=== PATIENT | female | born 1990 | race Caucasian/White ===

== ENCOUNTER 2016-04-28 14:25 | Emergency (ER) | payer MEDICAID ==
[2016-04-28 15:30] VITALS: BP 112/91
--- NOTE | 2016-04-28 16:08 | ER Document Report ---
ED Medical Screen (RME) - General Stated Complaint: LEG PAIN Mode of Arrival: Ambulatory Information source: Patient Notes: She presents to the emergency department with complaints of left lower leg pain that started hurting this morning denies trauma. Denies history of DVT. Patient does take control does not smoke. Denies other symptoms such as fever vomiting diarrhea. No obvious signs of DVT. TRAVEL OUTSIDE OF THE [place] IN LAST 30 DAYS: No - Related Data Allergies/Adverse Reactions: codeine [Codeine] Allergy (Intermediate, Verified 12/04/14 21:03) swelling Adhesive Bandage * [Adhesive Bandage] Adverse Reaction (Verified 12/04/14 21:03) Past Medical History - Past Medical History Cardiac Medical History: Denies: Hx Coronary Artery Disease, Hx DVT, Hx Hypercholesterolemia, Hx Hypertension Pulmonary Medical History: Reports: Hx Bronchitis Neurological Medical History: Reports: Hx Migraine. Denies: Hx Seizures Endocrine Medical History: Reports: Hx Diabetes Mellitus Type 2 - gestational Renal/ Medical History: Reports: Hx Kidney Stones, Hx Ovarian Cysts GI Medical History: Reports: Hx Irritable Bowel Psychiatric Medical History: Reports: Hx Depression Past Surgical History: Reports: Hx Cholecystectomy - Immunizations Immunizations up to date: Yes Hx Diphtheria, Pertussis, Tetanus Vaccination: Yes Physical Exam - Vital signs Vitals: Temp Pulse Resp BP Pulse Ox 98.0 F 102 H 16 112/91 H 100 04/28/16 15:29 04/28/16 15:29 04/28/16 15:29 04/28/16 15:29 04/28/16 15:29 Course - Vital Signs Vital signs: Temp Pulse Resp BP Pulse Ox 98.0 F 102 H 16 112/91 H 100 04/28/16 15:29 04/28/16 15:29 04/28/16 15:29 04/28/16 15:29 04/28/16 15:29
--- NOTE | 2016-04-28 16:48 | ER Document Report ---
ED General - General Chief Complaint: Leg Pain Stated Complaint: LEG PAIN Mode of Arrival: Ambulatory Information source: Patient Notes: Patient presents to the emergency department with complaints of left lower leg pain that started this morning. Patient denies trauma. Patient denies history of DVT/PE. Patient denies recent long trip. Patient reports she just woke up in her lower leg is hurting. She reports she was sandals all the time and did nothing but laid around yesterday.. TRAVEL OUTSIDE OF THE [place] IN LAST 30 DAYS: No - HPI Onset: This morning Onset/Duration: Sudden Quality of pain: Achy Pain Level: 4 Associated symptoms: None Exacerbated by: Walking Relieved by: Denies Similar symptoms previously: No Recently seen / treated by doctor: No - Related Data Allergies/Adverse Reactions: codeine [Codeine] Allergy (Intermediate, Verified 12/04/14 21:03) swelling Adhesive Bandage * [Adhesive Bandage] Adverse Reaction (Verified 12/04/14 21:03) Past Medical History - General Information source: Patient Last Menstrual Period: NuvaRing , PCOS - Social History Smoking Status: Never Smoker Cigarette use (# per day): No Frequency of alcohol use: None Drug Abuse: None Lives with: Family Family History: CVA, DM, Hyperlipidemia, Hypertension, Malignancy, Thyroid Disfunction Patient has suicidal ideation: No Patient has homicidal ideation: No - Past Medical History Cardiac Medical History: Denies: Hx Coronary Artery Disease, Hx DVT, Hx Hypercholesterolemia, Hx Hypertension Pulmonary Medical History: Reports: Hx Bronchitis Neurological Medical History: Reports: Hx Migraine. Denies: Hx Seizures Endocrine Medical History: Reports: Hx Diabetes Mellitus Type 2 - gestational Renal/ Medical History: Reports: Hx Kidney Stones, Hx Ovarian Cysts. Denies: Hx Peritoneal Dialysis GI Medical History: Reports: Hx Irritable Bowel Psychiatric Medical History: Reports: Hx Depression Past Surgical History: Reports: Hx Cholecystectomy - Immunizations Immunizations up to date: Yes Hx Diphtheria, Pertussis, Tetanus Vaccination: Yes Review of Systems - Review of Systems Notes: Review HPI for review of systems., All other systems negative Physical Exam - Vital signs Vitals: Temp Pulse Resp BP Pulse Ox 98.0 F 102 H 16 112/91 H 100 04/28/16 15:29 04/28/16 15:29 04/28/16 15:29 04/28/16 15:29 04/28/16 15:29 - Notes Notes: PHYSICAL EXAMINATION: GENERAL: Well-appearing and in no acute distress NONTOXIC LOOKING HEAD: Atraumatic, normocephalic. EYES: Pupils equal round , extraocular movements intact, sclera anicteric, conjunctiva are normal. ENT: nares patent, Moist mucous membranes. NECK: Normal range of motion, supple without lymphadenopathy LUNGS: CTAB and equal. No wheezes rales or rhonchi. HEART: Regular rate and rhythm EXTREMITIES: Normal range of motion, no pitting edema. No cyanosis. No sign of DVT no erythema no swelling or warmth. GOOD Pedal pulse NEUROLOGICAL: Cranial nerves grossly intact. Normal sensory/motor PSYCH: Normal mood, normal affect. SKIN: Warm, Dry, normal turgor, no rashes or lesions noted - Extremities General lower extremity: Normal inspection, Tender, Normal color, Normal ROM, Normal strength, Normal temperature, Normal weight bearing. No: Edema, Joao's sign Course - Re-evaluation Re-evalutation: 04/28/16 Patient looks good leg shows no sign of DVT or injury or trauma. Doppler neg. Patient was instructed on importance of follow-up with Dr. Woody - Vital Signs Vital signs: Temp Pulse Resp BP Pulse Ox 98.0 F 102 H 16 112/91 H 100 04/28/16 15:29 04/28/16 15:29 04/28/16 15:29 04/28/16 15:29 04/28/16 15:29 - Diagnostic Test Radiology reviewed: Image reviewed, Reports reviewed - NEG DOPPLER Discharge - Discharge Clinical Impression: Left leg pain Condition: Stable Disposition: HOME, SELF-CARE Instructions: Use of [id number] Ibuprofen ([facility]) Additional Instructions: *You have been evaluated for left leg pain *Rest/Ice/Elevate *Follow up with your primary care provider for recheck within one week *Take ibuprofen as indicated for pain *Return to ED for worsening condition, changes, needs Referrals: STORMY WOODY MD [Primary Care Provider] - Follow up in 3-5 days
== END 2016-04-28 19:01 | disposition home or self-care (01) ==
LOC: ER 14:25
DX: M79.662 Pain in left lower leg (principal); Z87.442 Personal history of urinary calculi; Z90.49 Acquired absence of other specified parts of digestive tract; Z88.6 Allergy status to analgesic agent
CPT/HCPCS: 93971; 99283

== ENCOUNTER 2016-05-04 23:12 | Emergency (ER) | payer MEDICAID ==
[2016-05-05] MEDS ORDERED: METOCLOPRAMIDE HCL ORAL SOLN 10 MG/10 ML UDCUP PO ONE (01:08)
[2016-05-05] MEDS ORDERED: FAMOTIDINE 20 MG TABLET PO ONE (01:08)
[2016-05-05] MEDS ORDERED: MAG HYDROX/AL HYDROX/SIMETH SUSP 30 ML UDCUP PO ONE (01:08)
[2016-05-05] MEDS ORDERED: LIDOCAINE 2% VISCOUS SOLN 20 ML UDCUP PO ONE (01:08)
[2016-05-05 01:54] LABS: HEMATOCRIT 40.9 % (36.0-47.0); HGB HCT DIFFERENCE -1.9; MEAN CORPUSCULAR HEMOGLOBIN 25.9 pg (27.0-33.4); MEAN CORPUSCULAR HGB CONC 31.9 g/dL (32.0-36.0); MEAN CORPUSCULAR VOLUME 81 fl (80-97); RED BLOOD COUNT 5.03 10^6/uL (3.72-5.28); RED CELL DISTRIBUTION WIDTH 13.5 % (11.5-14.0); WHITE BLOOD COUNT 12.8 10^3/uL (4.0-10.5)
[2016-05-05 02:09] LABS: ALANINE AMINOTRANSFERASE 26 U/L (9-52); ALBUMIN 4.2 g/dL (3.5-5.0); ALKALINE PHOSPHATASE 100 U/L (38-126); ANION GAP 11 (5-19); ASPARTATE AMINO TRANSFERASE 17 U/L (14-36); BILIRUBIN,TOTAL 0.5 mg/dL (0.2-1.3); BLOOD UREA NITROGEN 14 mg/dL (7-20); CALCIUM 9.5 mg/dL (8.4-10.2); CARBON DIOXIDE 29 mmol/L (22-30); CHLORIDE 100 mmol/L (98-107); CREATININE RESULT 0.92 mg/dL (0.52-1.25); GLUCOSE 106 mg/dL (75-110); POTASSIUM 3.7 mmol/L (3.6-5.0); SODIUM 139.7 mmol/L (137-145); TOTAL PROTEIN 7.6 g/dL (6.3-8.2)
--- NOTE | 2016-05-05 02:18 | ER Document Report ---
ED General - General Chief Complaint: Vomiting Stated Complaint: VOMITING Notes: Patient is a 25-year-old female without past medical history, no use of anticoagulation who presents with concerns of vomiting bright red blood. States she's had 3-4 episodes of vomiting throughout the day today most recently one hour prior to arrival. She is unable to quantify the amount of blood that she has vomited. No prior history of similar symptoms in the past. Nothing improves or worsens or symptoms. No evidence of contacts. She has not spoken to her primary care physician regarding today's concerns. She denies any lightheadedness, weakness, or syncope. No melena or hematochezia. Does note a dull, cramping, mild epigastric abdominal pain. TRAVEL OUTSIDE OF THE [place] IN LAST 30 DAYS: No - Related Data Allergies/Adverse Reactions: codeine [Codeine] Allergy (Intermediate, Verified 12/04/14 21:03) swelling Adhesive Bandage * [Adhesive Bandage] Adverse Reaction (Verified 12/04/14 21:03) Past Medical History - General Information source: Patient - Social History Smoking Status: Never Smoker Frequency of alcohol use: None Drug Abuse: None Lives with: Spouse/Significant other Family History: CVA, DM, Hyperlipidemia, Hypertension, Malignancy, Thyroid Disfunction - Past Medical History Cardiac Medical History: Denies: Hx Coronary Artery Disease, Hx DVT, Hx Hypercholesterolemia, Hx Hypertension Pulmonary Medical History: Reports: Hx Bronchitis Neurological Medical History: Reports: Hx Migraine. Denies: Hx Seizures Endocrine Medical History: Reports: Hx Diabetes Mellitus Type 2 - gestational Renal/ Medical History: Reports: Hx Kidney Stones, Hx Ovarian Cysts. Denies: Hx Peritoneal Dialysis GI Medical History: Reports: Hx Irritable Bowel Psychiatric Medical History: Reports: Hx Depression Past Surgical History: Reports: Hx Cholecystectomy - Immunizations Immunizations up to date: Yes Hx Diphtheria, Pertussis, Tetanus Vaccination: Yes Review of Systems - Review of Systems Notes: Constitutional: Negative for fever. HENT: Negative for sore throat. Eyes: Negative for visual changes. Cardiovascular: Negative for chest pain. Respiratory: Negative for shortness of breath. Gastrointestinal: Negative for abdominal pain, positive for vomiting Genitourinary: Negative for dysuria. Musculoskeletal: Negative for back pain. Skin: Negative for rash. Neurological: Negative for headaches, weakness or numbness. 10 point ROS negative except as marked above and in HPI. Physical Exam - Vital signs Vitals: Temp Pulse Resp BP Pulse Ox 98.1 F 105 H 16 109/75 97 05/04/16 23:38 05/04/16 23:38 05/04/16 23:38 05/04/16 23:38 05/04/16 23:38 Interpretation: Tachycardic Notes: PHYSICAL EXAMINATION: GENERAL: Well-appearing, well-nourished and in no acute distress. HEAD: Atraumatic, normocephalic. EYES: Pupils equal round and reactive to light, extraocular movements intact, sclera anicteric, conjunctiva are normal. ENT: nares patent, oropharynx clear without exudates. Moist mucous membranes. NECK: Normal range of motion, supple without lymphadenopathy LUNGS: Breath sounds clear to auscultation bilaterally and equal. No wheezes rales or rhonchi. HEART: Regular rate and rhythm without murmurs ABDOMEN: Soft, nontender, normoactive bowel sounds. No guarding, no rebound. No masses appreciated. EXTREMITIES: Normal range of motion, no pitting or edema. No cyanosis. NEUROLOGICAL: No focal neurological deficits. Moves all extremities spontaneously and on command. PSYCH: Normal mood, normal affect. SKIN: Warm, Dry, normal turgor, no rashes or lesions noted. Course - Re-evaluation Re-evalutation: 05/05/16 02:13 Patient presents with concerns of an upper GI bleed reported multiple episodes of vomiting bright red blood. Her last episode of vomiting was 2 hours prior to my assessment. Patient arrives in no acute distress and vitals are within normal limits at the time of my assessment. Hemoglobin is completely within normal limits and actually improved from patient's more recent hemoglobin from December. She has no tachycardia or hypotension at time of my evaluation, was initially mildly tachycardic at time of arrival. Suspect patient's report of vomiting blood is more vomiting with tinges of blood given her overall well appearance, no active vomiting here in the emergency department, and a completely normal hemoglobin especially given the patient reports her vomiting began earlier this morning. She will be observed for a total of 3 hours in the emergency department she remains without any further vomiting, normal vitals, and continues to tolerate oral intake without difficulty will be discharged home. 05/05/16 03:34 Patient is continued to be without any further episodes of vomiting. She has tolerated oral intake. Vitals remain within normal limits without tachycardia or hypotension.At this time will discharge with return precautions and follow- up recommendations. Verbal discharge instructions given a the bedside and opportunity for questions given. Medication warnings reviewed. Patient is in agreement with this plan and has verbalized understanding of return precautions and the need for primary care follow-up in the next 24-72 hours. - Vital Signs Vital signs: Temp Pulse Resp BP Pulse Ox 98.1 F 105 H 11 L 107/82 100 05/04/16 23:38 05/04/16 23:38 05/05/16 02:01 05/05/16 02:01 05/05/16 02:01 - Laboratory Result Diagrams: 05/05/16 01:30 05/05/16 01:30 Laboratory results interpreted by me: 05/05/16 01:30 WBC 12.8 H MCH 25.9 L MCHC 31.9 L Discharge - Discharge Clinical Impression: Hematemesis Qualifiers: Nausea presence: with nausea Qualified Code(s): K92.0 - Hematemesis; R11.0 - Nausea Condition: Good Disposition: HOME, SELF-CARE Instructions: Upper Gastrointestinal Bleeding ([facility]), Acid-Suppressing Medication ([facility]) Additional Instructions: You need to follow-up with a GI doctor in the next several days for consideration of an upper endoscopy. Return immediately to the emergency room if you have any recurrence of vomiting blood, worsening pain in your abdomen, pass out, or have any other symptoms that are concerning to you. You need to start taking famotidine 40 mg twice daily. This can be purchased over the counter. Continue to take this every day until you are cleared by your GI doctor.
[2016-05-05 04:11] VITALS: BP 106/77
== END 2016-05-05 04:11 | disposition home or self-care (01) ==
LOC: ER 23:12
DX: K92.0 Hematemesis (principal); R10.13 Epigastric pain; Z88.5 Allergy status to narcotic agent; Z90.49 Acquired absence of other specified parts of digestive tract; Z87.19 Personal history of other diseases of the digestive system
CPT/HCPCS: 99283; 36415; 85027; 80053; J3490 ×4

== ENCOUNTER 2016-05-13 11:09 | Day surgery (SDC) | payer MEDICAID ==
[~2016-05-13 11:09] MED LIST: PROPOFOL INJ 200 MG/20 ML VIAL IV ONE
--- NOTE | 2016-05-13 13:38 | Operative Report ---
Operative Report DATE OF SURGERY: 05/13/16 Operative Report: The risks benefits and alternatives of the procedure explained to the patient in detail and informed consent is obtained that GIF Olympus video scope was inserted into the patient's mouth and hypopharynx the esophagus is identified intubated and insufflated the scope was then advanced through the esophagus stomach and duodenum retroflexion maneuver is done the esophagus stomach and first and second portions of the duodenum examined PREOPERATIVE DIAGNOSIS: Nausea history of hematemesis POSTOPERATIVE DIAGNOSIS: Esophageal rings and furrows suggestive of eosinophilic esophagitis status post biopsy. Gastritis status post biopsy. First and second portions of the duodenum are normal. OPERATION: EGD with biopsy SURGEON: AARON AUSTIN ANESTHESIA: LMAC TISSUE REMOVED OR ALTERED: Esophageal specimens obtained. Gastric specimens obtained COMPLICATIONS: None. ESTIMATED BLOOD LOSS: none. INTRAOPERATIVE FINDINGS: As described above PROCEDURE: Patient tolerated the procedure well. No immediate postprocedure complications are noted. Patient is discharged in good condition. Discharge date 05/13/2016. Discharge diet: Regular. Discharge activity: Regular. Patient does have a 2-3 week follow-up to discuss findings. She is instructed to call the office or proceed to the emergency room should there be any further problems or questions. We'll await on biopsies.
[2016-05-13 14:02] VITALS: BP 114/87
== END 2016-05-13 14:00 | disposition home or self-care (01) ==
LOC: END 11:09
PROVIDERS: ATTEND Internal Medicine Gastroenterology
PROC: 0DB58ZX Excision of Esophagus, Via Natural or Artificial Opening Endoscopic, Diagnostic (ICD-10-PCS; 2016-05-13)
PROC: 0DB68ZX Excision of Stomach, Via Natural or Artificial Opening Endoscopic, Diagnostic (ICD-10-PCS; principal; 2016-05-13 15:00)
DX: K29.50 Unspecified chronic gastritis without bleeding (principal); B96.81 Helicobacter pylori [H. pylori] as the cause of diseases classified elsewhere; K22.2 Esophageal obstruction; K92.0 Hematemesis; R73.9 Hyperglycemia, unspecified; E28.2 Polycystic ovarian syndrome; Z79.84 Long term (current) use of oral hypoglycemic drugs; Z79.899 Other long term (current) drug therapy; Z88.5 Allergy status to narcotic agent; Z87.891 Personal history of nicotine dependence
CPT/HCPCS: 43239; 88342 ×2; 88305 ×2; J2704; 740

== ENCOUNTER 2016-08-02 21:37 | Emergency (ER) | payer MEDICAID ==
[2016-08-03] MEDS ORDERED: HYDROMORPHONE HCL INJ/PF 2 MG/ML AMPULE IM ONE (01:34)
[2016-08-03] MEDS ORDERED: ONDANSETRON 4 MG TAB.RAPDIS PO ONE (01:34)
--- NOTE | 2016-08-03 01:59 | ER Document Report ---
HPI - HPI Patient complains to provider of: right ankle injury Pain Level: 3 Context: Patient is a 26-year-old female that comes emergency department for chief complaint of injury to her right ankle, she comes by EMS and was given IM Toradol in route, patient states she was in her yard and she accidentally stepped into a hole causing her to twist her ankle, she states she felt a pop with sharp pain. Patient denies hip pain, she denies any other injuries, she denies any daily medications. - REPRODUCTIVE LMP: now Reproductive: DENIES: : - DERM Skin Color: Normal Past Medical History - General Information source: Patient - Social History Smoking Status: Never Smoker Frequency of alcohol use: None Drug Abuse: None Lives with: Family Family History: CVA, DM, Hyperlipidemia, Hypertension, Malignancy, Thyroid Disfunction Patient has suicidal ideation: No Patient has homicidal ideation: No - Past Medical History Cardiac Medical History: Denies: Hx Coronary Artery Disease, Hx DVT, Hx Heart Attack, Hx Hypercholesterolemia, Hx Hypertension Pulmonary Medical History: Reports: Hx Bronchitis Denies: Hx Asthma, Hx COPD, Hx Pneumonia Neurological Medical History: Reports: Hx Migraine. Denies: Hx Cerebrovascular Accident, Hx Seizures Endocrine Medical History: Reports: Hx Diabetes Mellitus Type 2 - gestational Renal/ Medical History: Reports: Hx Kidney Stones, Hx Ovarian Cysts. Denies: Hx Peritoneal Dialysis GI Medical History: Reports: Hx Irritable Bowel Musculoskeltal Medical History: Denies Hx Arthritis Psychiatric Medical History: Reports: Hx Depression Past Surgical History: Reports: Hx Cholecystectomy - Immunizations Immunizations up to date: Yes Hx Diphtheria, Pertussis, Tetanus Vaccination: Yes Vertical Provider Document - CONSTITUTIONAL General Appearance: Mild Distress, Obese - INFECTION CONTROL TRAVEL OUTSIDE OF THE [place] IN LAST 30 DAYS: No - HEENT HEENT: Atraumatic, Normocephalic - NECK Neck: Normal Inspection - RESPIRATORY Respiratory: Breath Sounds Normal, No Respiratory Distress O2 Sat by Pulse Oximetry: 99 - CARDIOVASCULAR Cardiovascular: Regular Rate, Regular Rhythm - GI/ABDOMEN Gastrointestinal: Abdomen Soft, Abdomen Non-Tender - BACK Back: Normal Inspection - MUSCULOSKELETAL/EXTREMETIES Musculoskeletal/Extremeties: Tender - There is tenderness and swelling to the ankle, dorsum of the foot, and both medial and lateral malleolus of the right lower extremity. Normal capillary refill, sensation, dorsalis pedis pulse. Normal knee, hip exam - NEURO Level of Consciousness: Awake, Alert, Appropriate Course - Re-evaluation Re-evalutation: X-ray imaging shows distal fibular fracture with posterior malleolus fracture, also shows widening of the tibiofibular angle and medial periosteal stripping. Patient with good distal capillary refill, sensation, good dorsalis pedis pulse , has lower extremity swelling and pain over the bilateral malleolus areas, no other signs of injury. Patient placed in sugar tong and posterior ankle splint , provided with crutches, pain medicine, orthopedic referral. I discussed with patient and significant other that this would likely need surgery and they must follow-up with orthopedics closely. Discussed with Dr. Wade. Patient and state understanding and agreement. - Vital Signs Vital signs: Temp Pulse Resp BP Pulse Ox 98.3 F 111 H 18 110/79 99 08/02/16 22:14 08/02/16 22:14 08/02/16 22:14 08/02/16 22:14 08/02/16 22:14 - Diagnostic Test Radiology reviewed: Image reviewed, Reports reviewed Procedures - Immobilization right ankle Pre-Proc Neuro Vasc Exam: Normal Immobilizer type: Posterior ankle, Sugar tong Performed by: PCT Post-Proc Neuro Vasc Exam: Normal Alignment checked and good: Yes Discharge - Discharge Clinical Impression: Right ankle injury Qualifiers: Encounter type: initial encounter Qualified Code(s): S99.911A - Unspecified injury of right ankle, initial encounter Closed right ankle fracture Qualifiers: Encounter type: initial encounter Qualified Code(s): S82.891A - Other fracture of right lower leg, initial encounter for closed fracture Condition: Stable Disposition: HOME, SELF-CARE Instructions: Use of Crutches ([facility]), Oral Narcotic Medication ([facility]) Additional Instructions: There is a fracture in your ankle and some concerning separation that may require surgery. Please follow-up with the orthopedic referral as directed closely (i.e. Friday) . Wear the splint, take the pain medication if needed. Return the emergency department for any concerning symptoms. Prescriptions: Oxycodone HCl/Acetaminophen [Percocet 5-325 mg Tablet] 1 - 2 tab PO Q4H PRN #25 tablet PRN Reason: Referrals: LEIF JOHNS MD [ACTIVE STAFF] - 08/05/16
[2016-08-03 06:26] VITALS: BP 117/73
== END 2016-08-03 03:20 | disposition home or self-care (01) ==
LOC: ER 21:37
PROC: 2W3QX1Z Immobilization of Right Lower Leg using Splint (ICD-10-PCS; principal; 2016-08-02)
DX: S82.831A Other fracture of upper and lower end of right fibula, initial encounter for closed fracture (principal); S82.891A Other fracture of right lower leg, initial encounter for closed fracture; X50.1XXA Overexertion from prolonged static or awkward postures, initial encounter
CPT/HCPCS: 99283; 96372; 73610; 29515; S0119; J1170

== ENCOUNTER 2016-08-18 09:37 | Emergency (ER) | payer MEDICAID ==
--- NOTE | 2016-08-18 09:58 | ER Document Report ---
ED General - General Chief Complaint: Ankle Injury Stated Complaint: ANKLE/WRIST INJURY Time Seen by Provider: 08/18/16 09:52 TRAVEL OUTSIDE OF THE [place] IN LAST 30 DAYS: No - HPI Patient complains to provider of: right ankle right wrist pain Notes: Patient coming in for right ankle right wrist pain after a fall last night. Patient has a known right ankle fracture currently is in a cast and seen with orthopedics. Patient states she was on her scooter for her leg and she hit her child's toy and fell on her right side. Patient states pain in the right wrist and feels like her leg may have refractured. States that her ankle feels crunchy - Related Data Allergies/Adverse Reactions: codeine [Codeine] Allergy (Intermediate, Verified 08/18/16 09:55) swelling Adhesive Bandage * [Adhesive Bandage] Adverse Reaction (Verified 08/18/16 09:55) Generalized rash Past Medical History - Social History Smoking Status: Unknown if Ever Smoked Family History: CVA, DM, Hyperlipidemia, Hypertension, Malignancy, Thyroid Disfunction - Past Medical History Cardiac Medical History: Denies: Hx Coronary Artery Disease, Hx DVT, Hx Heart Attack, Hx Hypercholesterolemia, Hx Hypertension Pulmonary Medical History: Reports: Hx Bronchitis Denies: Hx Asthma, Hx COPD, Hx Pneumonia Neurological Medical History: Reports: Hx Migraine. Denies: Hx Cerebrovascular Accident, Hx Seizures Endocrine Medical History: Reports: Hx Diabetes Mellitus Type 2 - gestational Renal/ Medical History: Reports: Hx Kidney Stones, Hx Ovarian Cysts. Denies: Hx Peritoneal Dialysis GI Medical History: Reports: Hx Irritable Bowel Musculoskeltal Medical History: Denies Hx Arthritis Psychiatric Medical History: Reports: Hx Depression Past Surgical History: Reports: Hx Cholecystectomy - Immunizations Immunizations up to date: Yes Hx Diphtheria, Pertussis, Tetanus Vaccination: Yes Review of Systems - Review of Systems Constitutional: No symptoms reported EENT: No symptoms reported Cardiovascular: No symptoms reported Respiratory: No symptoms reported Gastrointestinal: No symptoms reported Genitourinary: No symptoms reported Female Genitourinary: No symptoms reported Musculoskeletal: Other - Right wrist right ankle Skin: No symptoms reported Hematologic/Lymphatic: No symptoms reported Neurological/Psychological: No symptoms reported Physical Exam - Vital signs Vitals: Temp Pulse Resp BP Pulse Ox 98.6 F 95 17 132/92 H 100 08/18/16 09:40 08/18/16 09:40 08/18/16 09:40 08/18/16 09:40 08/18/16 09:40 Interpretation: Normal - General General appearance: Appears well, Alert - HEENT Head: Normocephalic, Atraumatic Eyes: Normal Pupils: PERRL - Respiratory Respiratory status: No respiratory distress Chest status: Nontender Breath sounds: Normal Chest palpation: Normal - Cardiovascular Rhythm: Regular Heart sounds: Normal auscultation Murmur: No - Abdominal Inspection: Normal Distension: No distension Bowel sounds: Normal Tenderness: Nontender Organomegaly: No organomegaly - Back Back: Normal, Nontender - Extremities General upper extremity: Normal inspection, Nontender, Normal color, Normal ROM , Normal temperature General lower extremity: Nontender, Normal color, Normal ROM, Normal temperature , Normal weight bearing. No: Normal inspection - Patient has a purple cast on the right lower extremity Refill intact sensation intact. Patient is also complaining of right wrist pain upper extremity Refill sensation intact no noticeable deformity. Patient is able to push herself up in the wheelchair using her hands and wrist, Joao's sign - Neurological Neuro grossly intact: Yes Cognition: Normal Orientation: AAOx4 Buster Coma Scale Eye Opening: Spontaneous Binger Coma Scale Verbal: Oriented Binger Coma Scale Motor: Obeys Commands Binger Coma Scale Total: 15 Speech: Normal Motor strength normal: LUE, RUE, LLE, RLE Sensory: Normal - Psychological Associated symptoms: Normal affect, Normal mood - Skin Skin Temperature: Warm Skin Moisture: Dry Skin Color: Normal Course - Re-evaluation Re-evalutation: 08/18/16 09:58 Will check x-rays more likely contusions. Patient will more likely be discharged back to her orthopedic doctor. - Vital Signs Vital signs: Temp Pulse Resp BP Pulse Ox 98 F 91 16 124/89 H 100 08/18/16 11:22 08/18/16 11:22 08/18/16 11:22 08/18/16 11:22 08/18/16 11:22 Discharge - Discharge Clinical Impression: Right wrist sprain Qualifiers: Encounter type: initial encounter Qualified Code(s): S63.501A - Unspecified sprain of right wrist, initial encounter Ankle fracture, right Qualifiers: Encounter type: initial encounter Fracture type: closed Qualified Code(s): S82.891A - Other fracture of right lower leg, initial encounter for closed fracture Condition: Good Disposition: HOME, SELF-CARE Instructions: Fractured Ankle (Bimalleolar) (PENDING SALE TO [facility]), Wrist Sprain (PENDING SALE TO [facility]) Additional Instructions: X-rays showed no signs of fractures or so for the concurrent fracture of your right ankle. There is no new fractures. Please follow-up with orthopedic doctor. Return to ER symptoms worsen.
[2016-08-18 11:22] VITALS: BP 124/89
== END 2016-08-18 11:26 | disposition home or self-care (01) ==
LOC: ER 09:37
DX: S63.501A Unspecified sprain of right wrist, initial encounter (principal); V00.181A Fall from other rolling-type pedestrian conveyance, initial encounter; Y93.89 Activity, other specified; S82.891D Other fracture of right lower leg, subsequent encounter for closed fracture with routine healing; S82.831D Other fracture of upper and lower end of right fibula, subsequent encounter for closed fracture with routine healing; X58.XXXD Exposure to other specified factors, subsequent encounter; Z88.5 Allergy status to narcotic agent
CPT/HCPCS: 99283

== ENCOUNTER → 2016-09-02 | Outpatient (CLI) | payer MEDICAID ==
--- NOTE | 2016-09-02 16:31 | RADIOLOGY REPORT (SQ) ---
EXAM DESCRIPTION: ANKLE RIGHT COMPLETE COMPLETED DATE/TIME: 09/02/2016 4:15 pm REASON FOR STUDY: ACUTE RIGHT ANKLE PAIN M25.571 PAIN IN RIGHT ANKLE AND JOINTS OF RIGHT FOOT COMPARISON: 08/18/2016 NUMBER OF VIEWS: Three views. TECHNIQUE: AP, lateral, and oblique radiographic images acquired of the right ankle. LIMITATIONS: None. FINDINGS: MINERALIZATION: Normal. BONES: Similar appearance of distal fibular and tibial fractures. No acute fracture or dislocation. No worrisome bone lesions. JOINTS: No effusions. SOFT TISSUES: Diffuse soft tissue swelling. No foreign body. OTHER: No other significant finding. IMPRESSION: Similar appearance of distal fibular and tibial fractures compared with 08/18/2016. TECHNICAL DOCUMENTATION: JOB ID: [id number] [employer]- All Rights Reserved
== END ==
LOC: RAD 15:32
PROVIDERS: ATTEND Nurse Practitioner Acute Care
DX: M25.571 Pain in right ankle and joints of right foot (principal)

== ENCOUNTER 2016-10-15 20:07 | Emergency (ER) | payer MEDICAID, OTHER ==
--- NOTE | 2016-10-15 23:04 | ER Document Report ---
ED Extremity Problem, Lower - General Mode of Arrival: Wheelchair Information source: Patient TRAVEL OUTSIDE OF THE [place] IN LAST 30 DAYS: No - HPI Patient complains to provider of: Injury, Pain, Swelling Location: Ankle - right Occurred: This afternoon - Refer to HPI notes - General Chief Complaint: Ankle Pain Stated Complaint: ANKLE PAIN Time Seen by Provider: 10/15/16 22:52 Notes: Patient is a 26-year-old female presenting to the emergency department for an inversion injury to her right ankle. Patient just recently got her boot off this same ankle after a recent fracture. On 08/02/2016 the patient was evaluated for a right ankle injury and her x-ray read: distal fibular fracture and posterior malleolus fracture. Patient was walking on a broken sidewalk and twisted her ankle. Patient also has some swelling and tenderness to this ankle is concerned for a another possible fracture. Patient is allergic to codeine and adhesive bandage. (MAN GUDINO) - Related Data Allergies/Adverse Reactions: codeine [Codeine] Allergy (Intermediate, Verified 08/18/16 09:55) swelling Adhesive Bandage * [Adhesive Bandage] Adverse Reaction (Verified 08/18/16 09:55) Generalized rash Past Medical History - General Information source: Patient - Social History Smoking Status: Never Smoker Cigarette use (# per day): No Chew tobacco use (# tins/day): No Smoking Education Provided: No Frequency of alcohol use: Occasional Drug Abuse: None Family History: CVA, DM, Hyperlipidemia, Hypertension, Malignancy, Thyroid Disfunction Patient has suicidal ideation: No Patient has homicidal ideation: No Pulmonary Medical History: Reports: Hx Bronchitis Neurological Medical History: Reports: Hx Migraine Endocrine Medical History: Reports: Hx Diabetes Mellitus Type 2 - gestational Renal/ Medical History: Reports: Hx Kidney Stones, Hx Ovarian Cysts GI Medical History: Reports: Hx Irritable Bowel Psychiatric Medical History: Reports: Hx Depression Past Surgical History: Reports: Hx Cholecystectomy - Immunizations Immunizations up to date: Yes Hx Diphtheria, Pertussis, Tetanus Vaccination: Yes Review of Systems - Review of Systems Constitutional: No symptoms reported EENT: No symptoms reported Cardiovascular: No symptoms reported Respiratory: No symptoms reported Gastrointestinal: No symptoms reported Genitourinary: No symptoms reported Female Genitourinary: No symptoms reported Musculoskeletal: See HPI Skin: See HPI Hematologic/Lymphatic: No symptoms reported Neurological/Psychological: No symptoms reported -: Yes All other systems reviewed and negative Physical Exam - Vital signs Interpretation: Normal - Vital signs Vitals: Temp Resp Pulse Ox 98.5 F 20 98 10/15/16 20:43 10/15/16 20:43 10/15/16 20:43 - Notes Notes: GENERAL: Alert, interacts well. No acute distress. HEAD: Normocephalic, atraumatic. EYES: Pupils equal, round, and reactive to light. Extraocular movements intact. ENT: Oral mucosa moist, tongue midline. NECK: Full range of motion. Supple. Trachea midline. LUNGS: No respiratory distress. EXTREMITIES: Moves all 4 extremities spontaneously. Tenderness to palpation over the posterior to the distal third of the lateral malleolus, swelling to lateral malleolus, no tibial tenderness to palpation, no difficulty with inversion or eversion of the ankle. Dorsalis pedis pulses 2/4 bilaterally. No cyanosis. NEUROLOGICAL: Alert and oriented x3. Normal speech. PSYCH: Normal affect, normal mood. SKIN: Warm, dry, normal turgor. No rashes or lesions noted. (MAN GUDINO) Course - Re-evaluation Re-evalutation: 10/15/16 23:56 X-ray shows healing distal fibular fracture. No evidence of acute fracture. Will place in an Cali wrap, discharged home. (RAMSES SHULTZ) - Vital Signs Vital signs: Temp Pulse Resp BP Pulse Ox 98.7 F 96 18 117/74 99 10/16/16 00:21 10/16/16 00:21 10/16/16 00:21 10/16/16 00:21 10/16/16 00:21 Procedures - Immobilization Right Ankle Time completed: 00:15 Pre-Proc Neuro Vasc Exam: Normal Immobilizer type: Cali wrap Performed by: RN, PCT Post-Proc Neuro Vasc Exam: Normal Alignment checked and good: Yes Discharge - Discharge Clinical Impression: Right ankle sprain Qualifiers: Encounter type: initial encounter Involved ligament of ankle: calcaneofibular ligament Qualified Code(s): S93.411A - Sprain of calcaneofibular ligament of right ankle, initial encounter Fracture of distal end of fibula with routine healing Qualifiers: Encounter type: subsequent encounter Fracture type: closed Fracture morphology : other fracture Laterality: right Qualified Code(s): S82.831D - Other fracture of upper and lower end of right fibula, subsequent encounter for closed fracture with routine healing Condition: Stable Disposition: HOME, SELF-CARE Instructions: Sprained Ankle (OM) Scribe Attestation: 10/16/16 06:09 I personally performed the services described in the documentation, reviewed and edited the documentation which was dictated to the scribe in my presence, and it accurately records my words and actions. (RAMSES SHULTZ) Scribe Documentation - Scribe Written by Yessy:: Yessy Jean 10/16/2016 1:21 acting as scribe for :: Allison
--- NOTE | 2016-10-15 23:24 | RADIOLOGY REPORT (SQ) ---
EXAM DESCRIPTION: ANKLE RIGHT COMPLETE COMPLETED DATE/TIME: 10/15/2016 11:11 pm REASON FOR STUDY: reinjured fx ankle COMPARISON: 09/02/2016 NUMBER OF VIEWS: Three views. TECHNIQUE: AP, lateral, and oblique radiographic images acquired of the right ankle. LIMITATIONS: None. FINDINGS: MINERALIZATION: Normal. BONES: A healing fracture of the distal fibula is identified. No evidence for acute fracture or disl ocation is seen. JOINTS: No effusions. SOFT TISSUES: Soft tissue swelling is identified. OTHER: No other significant finding. IMPRESSION: Healing fracture of the distal fibula. No acute fracture or dislocation is seen. TECHNICAL DOCUMENTATION: JOB ID: [id number] [employer]- All Rights Reserved
[2016-10-16 00:28] VITALS: BP 117/74
== END 2016-10-16 00:20 | disposition home or self-care (01) ==
LOC: ER 20:07
DX: S93.411A Sprain of calcaneofibular ligament of right ankle, initial encounter (principal); S82.831D Other fracture of upper and lower end of right fibula, subsequent encounter for closed fracture with routine healing; X50.0XXA Overexertion from strenuous movement or load, initial encounter; Z88.6 Allergy status to analgesic agent; Z87.442 Personal history of urinary calculi; Z90.49 Acquired absence of other specified parts of digestive tract
CPT/HCPCS: 99283

== ENCOUNTER 2016-12-08 19:27 | Emergency (ER) | payer MEDICAID, OTHER ==
[2016-12-08 19:37] VITALS: BP 132/83
[2016-12-08] MEDS ORDERED: ACETAMINOPHEN 325 MG TABLET PO ONE (21:07)
--- NOTE | 2016-12-08 21:07 | ER Document Report ---
ED Fall - General Chief Complaint: Fall Injury Stated Complaint: FALL/LEG INJURY Time Seen by Provider: 12/08/16 20:56 TRAVEL OUTSIDE OF THE [place] IN LAST 30 DAYS: No - HPI Patient complains to provider of: lef thip and right foot pain s/p fall >24 hours ago Occurred: Yesterday Where: Home - slipped on wet pavement when walking to her car Context: Slipped Associated symptoms: denies: Lost consciousness, Dazed/confused Quality of pain: Achy, Throbbing Severity: Moderate Notes: right ankle fracture 07/2016, did not require surgery with Dr. Cao Able to ambulate without difficulty - Related data Allergies/Adverse Reactions: codeine [Codeine] Allergy (Intermediate, Verified 12/08/16 19:31) swelling Adhesive Bandage * [Adhesive Bandage] Adverse Reaction (Verified 12/08/16 19:31) Generalized rash Past Medical History - Social History Smoking Status: Current Every Day Smoker Family History: CVA, DM, Hyperlipidemia, Hypertension, Malignancy, Thyroid Disfunction - Past Medical History Cardiac Medical History: Denies: Hx Coronary Artery Disease, Hx DVT, Hx Heart Attack, Hx Hypercholesterolemia, Hx Hypertension Pulmonary Medical History: Reports: Hx Bronchitis Denies: Hx Asthma, Hx COPD, Hx Pneumonia Neurological Medical History: Reports: Hx Migraine. Denies: Hx Cerebrovascular Accident, Hx Seizures Endocrine Medical History: Reports: Hx Diabetes Mellitus Type 2 - gestational Renal/ Medical History: Reports: Hx Kidney Stones, Hx Ovarian Cysts. Denies: Hx Peritoneal Dialysis GI Medical History: Reports: Hx Irritable Bowel Musculoskeltal Medical History: Denies Hx Arthritis Psychiatric Medical History: Reports: Hx Depression Past Surgical History: Reports: Hx Cholecystectomy - Immunizations Immunizations up to date: Yes Hx Diphtheria, Pertussis, Tetanus Vaccination: Yes Review of Systems - Review of Systems Constitutional: No symptoms reported Musculoskeletal: See HPI Neurological/Psychological: No symptoms reported -: Yes All other systems reviewed and negative Physical Exam - Vital signs Vitals: Temp Pulse Resp BP Pulse Ox 98.8 F 114 H 20 132/83 H 98 12/08/16 19:33 12/08/16 19:33 12/08/16 19:33 12/08/16 19:33 12/08/16 19:33 - Extremities General lower extremity: Normal inspection, Tender - on top of the right foot, Normal color, Normal ROM, Normal strength, Normal weight bearing. No: Edema Hip: Normal, Nontender. No: Tender, Abrasion, Deformity, Dislocation, Ecchymosis, Instability, Laceration, Pain with ROM, Unable to bear weight, Other Foot: Tender. No: Normal, Nontender, Abrasion, Deformity, Edema, Ecchymosis, Instability, Laceration, Metatarsal compress. pain, Nail injury, Navicular tenderness, No evidence of FB, Puncture wound, Unable to bear weight, Tender 5th metatarsal, Other - Neurological Neuro grossly intact: Yes Cognition: Normal Orientation: AAOx4 [place] Coma Scale Eye Opening: Spontaneous [place] Coma Scale Verbal: Oriented [place] Coma Scale Motor: Obeys Commands Buster Coma Scale Total: 15 Speech: Normal Motor strength normal: LUE, RUE, LLE, RLE Additional motor exam normals: No: Weakness Sensory: Normal - Skin Skin Temperature: Warm Skin Moisture: Dry Skin Color: Normal Skin Turgor: Elastic Course - Re-evaluation Re-evalutation: 12/08/16 22:46 No evidence of a septic joint, gout flare, dislocation, or new acute fracture on exam and imaging. Vitals wnl. At this time, I do not see an indication for labs or further imaging. Will discharge with conservative measures, return precautions, and follow-up recommendations. - Vital Signs Vital signs: Temp Pulse Resp BP Pulse Ox 98.8 F 114 H 20 132/83 H 98 12/08/16 19:33 12/08/16 19:33 12/08/16 19:33 12/08/16 19:33 12/08/16 19:33 - Diagnostic Test Radiology reviewed: Image reviewed, Reports reviewed Discharge - Discharge Clinical Impression: Fall Qualifiers: Encounter type: initial encounter Qualified Code(s): W19.XXXA - Unspecified fall, initial encounter Condition: Good Disposition: HOME, SELF-CARE Additional Instructions: CONTUSION: Your injury has resulted in a contusion -- a crushing of the deep tissues. No injury to important structures was detected during the physician's exam. Contusions vary in the amount of pain they cause, and in the length of time required for healing. Typically, the area will become bruised, and will remain painful to touch for two or three weeks. However, most patients are back to working and playing within a few days. After the initial period of rest and cold-packs, your symptoms (together with the doctor's recommendations) will determine how rapidly you can get back to full activity. Usually this means "do what feels okay, but don't do things that hurt." If re-examination was recommended, it's important to follow up as instructed. Call the doctor or return any time if pain increases, if swelling becomes severe, if you develop numbness or weakness in an injured extremity, or if any other alarming symptoms occur. USE OF TYLENOL Acetaminophen may be taken for pain relief or fever control. It's much safer than aspirin, offering a wider range of "safe" dosages. It is safe during . Some brand names are Tylenol, Panadol, Datril, Anacin 3, Tempra, and Liquiprin. Acetaminophen can be repeated every four hours. The following are maximum recommended dosages: WEIGHT Dose Drops Elixir Chewable( 80mg) (LBS.) drprs=droppers tsp=teaspoon 6 40 mg 0.4 ml (1/2) 6-11 80 mg 0.8 ml (full) tsp 1 tab 12-16 120 mg 1 1/2 drprs 3/4 tsp 1 1/2 tabs 17-23 160 mg 2 drprs 1 tsp 2 tabs 24-30 240 mg 3 drprs 1 1/2 tsp 3 tabs 30-35 320 mg 2 tsp 4 tabs 36-41 360 mg 2 1/4 tsp 4 1/2 tabs 42-47 400 mg 2 1/2 tsp 5 tabs 48-53 480 mg 3 tsp 6 tabs 54-59 520 mg 3 1/4 tsp 6 1/2 tabs 60-64 560 mg 3 1/2 tsp 7 tabs 65-70 600 mg 3 3/4 tsp 7 1/2 tabs 71-76 640 mg 4 tsp 8 tabs 77-82 720 mg 4 1/2 tsp 9 tabs 83-88 800 mg 5 tsp 10 tabs >89 pounds or adults 650 mg to 900 mg Acetaminophen can be repeated every four hours. Maximum dose not to exceed 4000 mg a day. These maximum recommended dosages are slightly higher than the dosages written on the product container, but these dosages are very safe and below the toxic dosage for acetaminophen. ICE PACKS: Apply ice packs frequently against the painful area. Many different schedules are recommended, such as "20 minutes on, 20 minutes off" or "one hour ice, two hours rest." If you need to work, you may need to go longer between ice treatments. You should plan to have the area ice packed AT LEAST one fourth of the time. The ice should be applied over the wrap, tape, or splint, or over a layer of cloth -- not directly against the skin. Some ice bags have a built-in cloth and can be put directly on the skin. WARM PACKS: After approximately two days, apply gentle heat (such as a heating pad or hot water bottle) for about 20 to 30 minutes about every two hours -- at least four times daily. Warmth and elevation will help you make a more rapid recovery , and will ease the pain considerably. Do not use HOT heat, and never apply heat for longer than 30 minutes. The continuous heat can invisibly damage skin and muscles -- even when no burn is seen on the surface. Damaged muscles can make you MORE sore. FOLLOW-UP CARE: If you have been referred to a physician for follow-up care, call the physician s office for an appointment as you were instructed or within the next two days. If you experience worsening or a significant change in your symptoms, notify the physician immediately or return to the Emergency Department at any time for re-evaluation. Referrals: [facility] [Provider Group] - Follow up as needed
--- NOTE | 2016-12-08 21:36 | RADIOLOGY REPORT (SQ) ---
EXAM DESCRIPTION: FOOT RIGHT COMPLETE COMPLETED DATE/TIME: 12/08/2016 9:27 pm REASON FOR STUDY: fall last evening COMPARISON: None. NUMBER OF VIEWS: Three views. TECHNIQUE: AP, lateral and oblique radiographic images acquired of the right foot. LIMITATIONS: None. FINDINGS: MINERALIZATION: Normal. BONES: No acute fracture or dislocation. No worrisome bone lesions. JOINTS: No effusions. SOFT TISSUES: No soft tissue swelling. No foreign body. OTHER: No other significant finding. IMPRESSION: NEGATIVE STUDY OF THE RIGHT FOOT. NO RADIOGRAPHIC EVIDENCE OF ACUTE INJURY. TECHNICAL DOCUMENTATION: JOB ID: [id number] [employer]- All Rights Reserved
--- NOTE | 2016-12-08 21:37 | RADIOLOGY REPORT (SQ) ---
EXAM DESCRIPTION: HIP LEFT AP/LATERAL COMPLETED DATE/TIME: 12/08/2016 9:27 pm REASON FOR STUDY: fall last evening COMPARISON: None. NUMBER OF VIEWS: Two views. TECHNIQUE: AP pelvis and additional frog-leg view of the left hip. LIMITATIONS: None. FINDINGS: MINERALIZATION: Normal. LEFT HIP: No fracture or dislocation. No worrisome bone lesions. RIGHT HIP: No fracture or dislocation. No worrisome bone lesions. PUBIS AND ISCHIUM: No fracture. PELVIS: No fracture. SACRUM: No fracture or dislocation. No worrisome bone lesions. LOWER LUMBAR SPINE: No fracture or dislocation. No worrisome bone lesions. No significant disc disea se. SOFT TISSUES: No findings. OTHER: No other significant finding. IMPRESSION: NEGATIVE STUDY OF THE LEFT HIP AND PELVIS. NO RADIOGRAPHIC EVIDENCE OF ACUTE INJURY. TECHNICAL DOCUMENTATION: JOB ID: [id number] [employer]- All Rights Reserved
--- NOTE | 2016-12-08 21:39 | RADIOLOGY REPORT (SQ) ---
EXAM DESCRIPTION: ANKLE RIGHT COMPLETE COMPLETED DATE/TIME: 12/08/2016 9:27 pm REASON FOR STUDY: fall last evening COMPARISON: 10/15/2016. NUMBER OF VIEWS: Three views. TECHNIQUE: AP, lateral, and oblique radiographic images acquired of the right ankle. LIMITATIONS: None. FINDINGS: MINERALIZATION: Normal. BONES: Healing fracture of the distal fibula. No acute fracture or dislocation. No worrisome bone l esions. JOINTS: No effusions. SOFT TISSUES: No soft tissue swelling. No foreign body. OTHER: No other significant finding. IMPRESSION: HEALING FRACTURE OF THE DISTAL FIBULA. NO ACUTE FINDINGS. TECHNICAL DOCUMENTATION: JOB ID: [id number] [employer]- All Rights Reserved
== END 2016-12-08 22:58 | disposition home or self-care (01) ==
LOC: ER 19:27
DX: S99.912A Unspecified injury of left ankle, initial encounter (principal); M79.652 Pain in left thigh; F17.200 Nicotine dependence, unspecified, uncomplicated; W19.XXXA Unspecified fall, initial encounter
CPT/HCPCS: 99283; 73610; 73630; 73502; J3490

== ENCOUNTER 2017-03-28 20:36 | Emergency (ER) | payer MEDICAID ==
[2017-03-28] MEDS ORDERED: LIDOCAINE 2% VISCOUS SOLN 20 ML UDCUP PO ONE (21:47)
[2017-03-28] MEDS ORDERED: NORMAL SALINE 1000 ML 1,000 ML IV ONE (21:47)
[2017-03-28] MEDS ORDERED: MAG HYDROX/AL HYDROX/SIMETH SUSP 30 ML UDCUP PO ONE (21:47)
--- NOTE | 2017-03-28 21:50 | ER Document Report ---
ED General - General Mode of Arrival: Ambulatory Information source: Patient TRAVEL OUTSIDE OF THE [place] IN LAST 30 DAYS: No - HPI Patient complains to provider of: Cold like symptoms Onset: Other - 2 days ago Associated symptoms: Other - see notes above <ANAYELI RYAN - Last Filed: 03/28/17 22:01> <MAYRA RUIZ - Last Filed: 03/29/17 00:37> - General Chief Complaint: Flu Symptoms Stated Complaint: CHEST,STOMACH PAIN Time Seen by Provider: 03/28/17 21:05 Notes: 26 year old female with history of cholecystectomy (2010) presents to the ED complaining of flu like symptoms that started 2 days ago. Patient reports that today she developed bilateral upper quadrant abdominal pain and right side pain. Patient is additionally complaining of nausea, occasional cough, and cold sweats. Patient has had a poor appetite today and went to be evaluated at the Urgent Care before arriving to the ED. Patient denies any diarrhea. Patient describes her side pain as if she is having a 'kidney infection.' (ANAYELI RYAN) - Related Data Allergies/Adverse Reactions: codeine [Codeine] Allergy (Intermediate, Verified 12/08/16 19:31) swelling Adhesive Bandage * [Adhesive Bandage] Adverse Reaction (Verified 12/08/16 19:31) Generalized rash Past Medical History - General Information source: Patient - Social History Smoking Status: Unknown if Ever Smoked Family History: CVA, DM, Hyperlipidemia, Hypertension, Malignancy, Thyroid Disfunction Patient has suicidal ideation: No Patient has homicidal ideation: No Pulmonary Medical History: Reports: Hx Bronchitis Neurological Medical History: Reports: Hx Migraine Endocrine Medical History: Reports: Hx Diabetes Mellitus Type 2 - gestational Renal/ Medical History: Reports: Hx Kidney Stones, Hx Ovarian Cysts - PCOS GI Medical History: Reports: Hx Irritable Bowel Psychiatric Medical History: Reports: Hx Depression Past Surgical History: Reports: Hx Cholecystectomy - Immunizations Immunizations up to date: Yes Hx Diphtheria, Pertussis, Tetanus Vaccination: Yes <ANAYELI RYAN - Last Filed: 03/28/17 22:01> Review of Systems - Review of Systems Constitutional: See HPI, Chills, Diaphoresis EENT: No symptoms reported Cardiovascular: No symptoms reported Respiratory: See HPI, Cough Gastrointestinal: See HPI, Abdominal pain - bilateral upper quadrants, Nausea, Poor appetite. denies: Diarrhea Genitourinary: No symptoms reported Female Genitourinary: No symptoms reported Musculoskeletal: No symptoms reported Skin: No symptoms reported Hematologic/Lymphatic: No symptoms reported Neurological/Psychological: No symptoms reported -: Yes All other systems reviewed and negative <ANAYELI RYAN - Last Filed: 03/28/17 22:01> Physical Exam - General General appearance: Appears well, Alert In distress: None - HEENT Head: Normocephalic, Atraumatic Eyes: Normal Extraocular movements intact: Yes Pupils: PERRL - Respiratory Respiratory status: No respiratory distress Chest status: Tender - Right anterior inferior ribs are tender to palpate Breath sounds: Rales - bilateral. right greater than left, Rhonchi - bilateral. Right greater than left. - Cardiovascular Rhythm: Regular, Tachycardia Heart sounds: Normal auscultation - Abdominal Inspection: Normal - soft Distension: No distension Tenderness: Nontender - RUQ, Tender - epigastric tenderness to palpation - Back Back: Normal - Extremities General upper extremity: Normal inspection, Normal ROM General lower extremity: Normal inspection, Normal ROM - Neurological Neuro grossly intact: Yes - Psychological Associated symptoms: Normal affect, Normal mood - Skin Skin Temperature: Warm Skin Moisture: Dry Skin Color: Normal <ANAYELI RYAN - Last Filed: 03/28/17 22:01> - Vital signs Vitals: Temp Pulse Resp BP Pulse Ox 99.7 F 138 H 20 115/73 95 03/28/17 20:41 03/28/17 20:41 03/28/17 20:41 03/28/17 20:41 03/28/17 20:41 Course <ANAYELI RYAN - Last Filed: 03/28/17 22:01> - Laboratory Result Diagrams: 03/28/17 22:10 03/28/17 22:10 - EKG Interpretation by [facility] EKG shows normal: Sinus rhythm, [place], Intervals, QRS Complexes. abnormal: ST-T Waves - Repolarization abnormality in the anterior leads Rate: Tachycardia - 114 P Waves: LAE When compared to previous EKG there are: Previous EKG unavailable <MAYRA RUIZ - Last Filed: 03/29/17 00:37> - Re-evaluation Re-evalutation: 03/29/17 00:11 After 2 L IV fluids, the patient's blood pressure is up to 102/71 The urine specific gravity in the office prior to arrival is 1.025, it is now 1.004 The epigastric pain resolved after the GI cocktail and she is no longer tender to palpate in that region. She still has occasional coughing, so she will be given a dose of Tessalon Perles and a prescription for that to help suppress the cough. The right anterior inferior rib pain is most likely due to the coughing. (MAYRA RUIZ) - Vital Signs Vital signs: Temp Pulse Resp BP Pulse Ox 99.7 F 138 H 21 H 89/68 L 94 03/28/17 20:41 03/28/17 20:41 03/28/17 21:08 03/28/17 21:08 03/28/17 21:08 - Laboratory Laboratory results interpreted by me: 03/28/17 03/28/17 22:10 22:10 MCH 26.8 L Sodium 136.6 L Discharge <ANAYELI RYAN - Last Filed: 03/28/17 22:01> <MAYRA RUIZ - Last Filed: 03/29/17 00:37> - Discharge Clinical Impression: Viral upper respiratory tract infection with cough, Heartburn, Dehydration Hypotension Qualifiers: Hypotension type: unspecified hypotension type Qualified Code(s): I95.9 - Hypotension, unspecified Condition: Stable Disposition: HOME, SELF-CARE Additional Instructions: Upper Respiratory Illness: You have a viral infection of the respiratory passages -- a "cold." This common infection causes nasal congestion, drainage, and often sore throat and cough. It is caused by a virus and is highly contagious. The disease usually lasts a week or more, though the worst symptoms are usually over in 3 or 4 days. There is no "cure" for the viral infection -- it must run its course. If there is a complication, such as bacterial infection in the nose, sinuses, middle ear, or bronchial tubes, antibiotics may be required, but antibiotics won 't affect the virus. If you smoke, you should STOP!! Drink plenty of fluids. A humidifier may help. An expectorant medication or decongestant may make you more comfortable. Use acetaminophen or ibuprofen for fever or aches. See the doctor if fever persists over two or three days, if there is any significant worsening of your symptoms, or if you simply fail to improve as expected. Dehydration Dehydration can result from vomiting or diarrhea, fever, or decreased intake of fluids. If severe, hospitalization and intravenous fluids may be required. Most cases are treated at home with fluids by mouth. For the next 24 hours, drink lots of clear fluids. In mild cases, this can be soda pop or sports drinks. For more severe dehydration, the doctor may recommend special fluids such as Pedialyte or Lytren. Try to get three liters ( 3 quarts) of fluid per day. If vomiting occurs, continue to drink the fluids frequently (every 15 to 20 minutes), but in small amounts (one or two ounces). Depending on the type of dehydration, the doctor may prescribe antinausea medicine or potassium replacements. Call the doctor or return for re-examination if you become progressively weak, vomit repeatedly, or have other new symptoms. Reflux Disease (GERD) Gastro-Esophageal Reflux Disease (GERD) is caused by stomach acid refluxing back up into the esophagus. The valve at the end of the esophagus may be weak. This is common in persons with a hiatal hernia. GERD symptoms can include indigestion, chest pain, heartburn, or food "sticking." Certain foods, alcohol, and aspirin can make GERD worse. Treatment depends on the severity. Usually, antacids or acid-suppressing medicines are used. When the esophagus is acutely inflamed, the physician will often prescribe membrane-protective drugs such as Carafate. Some patients benefit from medication such as Reglan that tightens the valve at the top of the stomach. Avoid those foods that bring on your symptoms. For many people, these foods are coffee, chocolate, onions, garlic, and carbonated drinks. Don't use alcohol, aspirin, caffeine, or tobacco. Don't eat late at night -- within 4 hours of bedtime. Don't over-eat. If necessary, elevate the head of your bed about 4 inches so that stomach acid will not roll up into your esophagus. Call the doctor if you develop severe chest pain, inability to swallow fluids, fever, or worsening symptoms. //////////////////////////////////////////////////////////////////////////////// //////////////////////////////////////////////////////////////////////////////// ///////////////// Start taking [id number] Prilosec(omeprazole) on a daily basis for a few days to reduce stomach acid. Take antacids between meals and at bedtime to neutralize the acid in your stomach. Drink plenty of fluids. Get plenty of rest. Take the Tessalon Perles as prescribed to suppress cough if needed. Follow-up with a local medical doctor if not improving. RETURN TO THE EMERGENCY ROOM IF ANY NEW OR WORSENING SYMPTOMS. Prescriptions: Benzonatate [Tessalon Perle 100 mg Capsule] 100 mg PO ASDIR PRN #30 cap PRN Reason: Cough Referrals: STORMY WOODY MD [Primary Care Provider] - Follow up as needed Scribe Attestation: 03/29/17 00:17 I personally performed the services described in the documentation, reviewed and edited the documentation which was dictated to the scribe in my presence, and it accurately records my words and actions. (MAYRA RUIZ) Scribe Documentation - Scribe Written by Yessy:: Yessy Madsen, 03/28/2017 221 acting as scribe for :: Nazia <ANAYELI RYAN - Last Filed: 03/28/17 22:01>
[2017-03-28 22:29] LABS: ABSOLUTE LYMPHOCYTES (AUTO) 0.8 10^3/uL (0.5-4.7); ABSOLUTE MONOCYTES (AUTO) 0.5 10^3/uL (0.1-1.4); ABSOLUTE NEUT (AUTO) 4.8 10^3/uL (1.7-8.2); BASOPHILS % (AUTO) 0.6 % (0-2); EOSINOPHILS % (AUTO) 0.3 % (0-6); HEMATOCRIT 41.8 % (36.0-47.0); HGB HCT DIFFERENCE 0.2; LYMPHOCYTES % (AUTO) 13.2 % (13-45); MEAN CORPUSCULAR HEMOGLOBIN 26.8 pg (27.0-33.4); MEAN CORPUSCULAR HGB CONC 33.5 g/dL (32.0-36.0); MEAN CORPUSCULAR VOLUME 80 fl (80-97); MONOCYTES % (AUTO) 8.4 % (3-13); RED BLOOD COUNT 5.22 10^6/uL (3.72-5.28); RED CELL DISTRIBUTION WIDTH 13.6 % (11.5-14.0); SEGMENTED NEUTROPHILS % (AUTO) 77.5 % (42-78); WHITE BLOOD COUNT 6.2 10^3/uL (4.0-10.5)
[2017-03-28 22:46] LABS: ALANINE AMINOTRANSFERASE 23 U/L (9-52); ALBUMIN 3.7 g/dL (3.5-5.0); ALKALINE PHOSPHATASE 84 U/L (38-126); ANION GAP 11 (5-19); ASPARTATE AMINO TRANSFERASE 24 U/L (14-36); BILIRUBIN,DIRECT 0.3 mg/dL (0.0-0.4); BILIRUBIN,TOTAL 0.6 mg/dL (0.2-1.3); BLOOD UREA NITROGEN 12 mg/dL (7-20); CALCIUM 8.9 mg/dL (8.4-10.2); CARBON DIOXIDE 25 mmol/L (22-30); CHLORIDE 101 mmol/L (98-107); CREATININE RESULT 0.88 mg/dL (0.52-1.25); GLUCOSE 91 mg/dL (75-110); POTASSIUM 4.5 mmol/L (3.6-5.0); SODIUM 136.6 mmol/L (137-145); TOTAL PROTEIN 6.8 g/dL (6.3-8.2)
[2017-03-28] MEDS ORDERED: DEXTROSE 5%-LACTATED RINGERS 1,000 ML IV ONE (23:10)
[2017-03-28 23:13] LABS: ADD ON TESTING BLD IN LAB ACKNOWLEDGE
[2017-03-28 23:24] LABS: LIPASE 42.3 U/L (23-300)
[2017-03-28 23:30] LABS: APPEARANCE,URINE CLEAR; BILIRUBIN,URINE NEGATIVE (NEGATIVE); GLUCOSE, URINE NEGATIVE (NEGATIVE); KETONES,URINE NEGATIVE (NEGATIVE); LEUKOCYTE ESTERASE,URINE NEGATIVE (NEGATIVE); NITRITE,URINE NEGATIVE (NEGATIVE); PROTEIN,URINE NEGATIVE (NEGATIVE); URINE SPECIFIC GRAVITY 1.004; UROBILINOGEN,URINE NEGATIVE mg/dL (<2.0)
[2017-03-29] MEDS ORDERED: BENZONATATE 100 MG CAPSULE PO ONE (00:11)
[2017-03-29 00:41] VITALS: BP 97/78
--- NOTE | 2017-03-29 07:54 | EKG REPORT ---
SEVERITY:- ABNORMAL ECG - SINUS TACHYCARDIA PROBABLE LEFT ATRIAL ABNORMALITY REPOL ABNRM SUGGESTS ISCHEMIA, ANTERIOR LEADS : Confirmed by: Mandeep Jackson MD 29-Mar-2017 07:52:52
== END 2017-03-29 00:42 | disposition home or self-care (01) ==
LOC: ER 20:36
DX: J06.9 Acute upper respiratory infection, unspecified (principal); B97.89 Other viral agents as the cause of diseases classified elsewhere; R05 Cough; R12 Heartburn; E86.0 Dehydration; I95.9 Hypotension, unspecified; R07.9 Chest pain, unspecified; R10.9 Unspecified abdominal pain; R10.11 Right upper quadrant pain; R10.12 Left upper quadrant pain; Z90.49 Acquired absence of other specified parts of digestive tract
CPT/HCPCS: 93005; 99284; 96361; 96365; 36415; 83690; 84703; 85025; 80053; 81001; 93010; J3490 ×3; J7030

== ENCOUNTER 2017-07-04 17:26 | Emergency (ER) | payer MEDICAID ==
[2017-07-04 19:32] LABS: ABSOLUTE BASOPHILS # (AUTO) 0.1 10^3/uL (0.0-0.2); ABSOLUTE EOSINOPHILS # (AUTO) 0.2 10^3/uL (0.0-0.6); ABSOLUTE LYMPHOCYTES (AUTO) 3.5 10^3/uL (0.5-4.7); ABSOLUTE MONOCYTES (AUTO) 0.8 10^3/uL (0.1-1.4); ABSOLUTE NEUT (AUTO) 7.6 10^3/uL (1.7-8.2); BASOPHILS % (AUTO) 0.9 % (0-2); HEMOGLOBIN 13.5 g/dL (12.0-15.5); LYMPHOCYTES % (AUTO) 28.7 % (13-45); MEAN CORPUSCULAR HEMOGLOBIN 26.8 pg (27.0-33.4); MEAN CORPUSCULAR VOLUME 81 fl (80-97); MONOCYTES % (AUTO) 6.8 % (3-13); PLATELET COUNT 318 10^3/uL (150-450); RED BLOOD COUNT 5.04 10^6/uL (3.72-5.28); RED CELL DISTRIBUTION WIDTH 13.7 % (11.5-14.0); SEGMENTED NEUTROPHILS % (AUTO) 61.6 % (42-78); TOTAL CELLS COUNTED % (AUTO) 100 %; WHITE BLOOD COUNT 12.2 10^3/uL (4.0-10.5)
[2017-07-04 19:49] LABS: ALANINE AMINOTRANSFERASE 24 U/L (9-52); ALBUMIN 4.1 g/dL (3.5-5.0); ALKALINE PHOSPHATASE 98 U/L (38-126); ANION GAP 10 (5-19); ASPARTATE AMINO TRANSFERASE 17 U/L (14-36); BILIRUBIN,DIRECT 0.2 mg/dL (0.0-0.4); BILIRUBIN,TOTAL 0.4 mg/dL (0.2-1.3); BLOOD UREA NITROGEN 12 mg/dL (7-20); CALCIUM 9.5 mg/dL (8.4-10.2); CARBON DIOXIDE 32 mmol/L (22-30); CHLORIDE 99 mmol/L (98-107); GLUCOSE 90 mg/dL (75-110); LIPASE 43.2 U/L (23-300); SODIUM 140.8 mmol/L (137-145)
[2017-07-04 19:51] LABS: APPEARANCE,URINE CLEAR; BILIRUBIN,URINE NEGATIVE (NEGATIVE); COLOR,URINE STRAW; GLUCOSE, URINE NEGATIVE (NEGATIVE); KETONES,URINE NEGATIVE (NEGATIVE); LEUKOCYTE ESTERASE,URINE NEGATIVE (NEGATIVE); NITRITE,URINE NEGATIVE (NEGATIVE); PROTEIN,URINE NEGATIVE (NEGATIVE); UROBILINOGEN,URINE NEGATIVE mg/dL (<2.0)
--- NOTE | 2017-07-04 20:33 | ER Document Report ---
ED General - General Chief Complaint: Abdominal Pain Stated Complaint: ABDOMINAL PAIN Time Seen by Provider: 07/04/17 18:56 Mode of Arrival: Ambulatory Information source: Patient Notes: 27 yr old female presents with complaints of abd pain to the lateral aspect of the left umbilical region. pt dneies any fevers or chills, denies any diarrhea. Patient unsure status due to hormonal imbalances and abnormal vaginal bleeding TRAVEL OUTSIDE OF THE [place] IN LAST 30 DAYS: No - HPI Onset: Yesterday Onset/Duration: Persistent Quality of pain: Sharp Severity: Mild Pain Level: 1 Associated symptoms: Other Exacerbated by: Denies Relieved by: Denies Similar symptoms previously: No Recently seen / treated by doctor: No - Related Data Allergies/Adverse Reactions: codeine [Codeine] Allergy (Intermediate, Verified 12/08/16 19:31) swelling Adhesive Bandage * [Adhesive Bandage] Adverse Reaction (Verified 12/08/16 19:31) Generalized rash Past Medical History - Social History Smoking Status: Former Smoker Cigarette use (# per day): No Chew tobacco use (# tins/day): No Smoking Education Provided: No Frequency of alcohol use: Rare Drug Abuse: None Family History: CVA, DM, Hyperlipidemia, Hypertension, Malignancy, Thyroid Disfunction Patient has suicidal ideation: No Patient has homicidal ideation: No - Past Medical History Cardiac Medical History: Denies: Hx Coronary Artery Disease, Hx DVT, Hx Heart Attack, Hx Hypercholesterolemia, Hx Hypertension Pulmonary Medical History: Reports: Hx Bronchitis Denies: Hx Asthma, Hx COPD, Hx Pneumonia Neurological Medical History: Reports: Hx Migraine. Denies: Hx Cerebrovascular Accident, Hx Seizures Endocrine Medical History: Reports: Hx Diabetes Mellitus Type 2 - gestational Renal/ Medical History: Reports: Hx Kidney Stones, Hx Ovarian Cysts - PCOS. Denies: Hx Peritoneal Dialysis GI Medical History: Reports: Hx Irritable Bowel Musculoskeltal Medical History: Denies Hx Arthritis Psychiatric Medical History: Reports: Hx Depression Past Surgical History: Reports: Hx Cholecystectomy - Immunizations Immunizations up to date: Yes Hx Diphtheria, Pertussis, Tetanus Vaccination: Yes Review of Systems - Review of Systems Notes: REVIEW OF SYSTEMS: CONSTITUTIONAL : Denies fever, chills, or sweats. Denies recent illness. EENT: Denies eye, ear, throat, or mouth pain or symptoms. Denies nasal or sinus congestion or discharge. Denies throat, tongue, or mouth swelling or difficulty swallowing. CARDIOVASCULAR: Denies chest pain. Denies palpitations or racing or irregular heart beat. Denies ankle edema. RESPIRATORY: Denies cough, cold, or chest congestion. Denies shortness of breath, difficulty breathing, or wheezing. GASTROINTESTINAL: Abdominal pain lateral left abdomen. GENITOURINARY: Denies difficulty urinating, painful urination, burning, frequency, blood in urine, or discharge. FEMALE GENITOURINARY: Denies vaginal bleeding, heavy or abnormal periods, irregular periods. Denies vaginal discharge or odor. MUSCULOSKELETAL: Denies back or neck pain or stiffness. Denies joint pain or swelling. SKIN: Denies rash, lesions or sores. HEMATOLOGIC : Denies easy bruising or bleeding. LYMPHATIC: Denies swollen, enlarged glands. NEUROLOGICAL: Denies confusion or altered mental status. Denies passing out or loss of consciousness. Denies dizziness or lightheadedness. Denies headache. Denies weakness or paralysis or loss of use of either side. Denies problems with gait or speech. Denies sensory loss, numbness, or tingling. Denies seizures. PSYCHIATRIC: Denies anxiety or stress. Denies depression, suicidal ideation, or homicidal ideation. ALL OTHER SYSTEMS REVIEWED AND NEGATIVE. PHYSICAL EXAMINATION: GENERAL: Well-appearing, well-nourished and in no acute distress. HEAD: Atraumatic, normocephalic. EYES: Pupils equal round and reactive to light, extraocular movements intact, conjunctiva are normal. ENT: Nares patent, oropharynx clear without exudates. Moist mucous membranes. NECK: Normal range of motion, supple without lymphadenopathy LUNGS: Breath sounds clear to auscultation bilaterally and equal. No wheezes rales or rhonchi. HEART: Regular rate and rhythm without murmurs ABDOMEN: Soft, point tenderness to the lateral aspect on the left of the umbilicus Female : deferred Musculoskeletal: Normal range of motion, no pitting or edema. No cyanosis. NEUROLOGICAL: Cranial nerves grossly intact. Normal speech, normal gait. Normal sensory, motor exams PSYCH: Normal mood, normal affect. SKIN: Warm, Dry, normal turgor, no rashes or lesions noted. Dictation was performed using [employer] voice recognition software Physical Exam - Vital signs Vitals: Temp Pulse Resp BP Pulse Ox 98.2 F 93 14 126/84 H 99 07/04/17 17:40 07/04/17 17:40 07/04/17 17:40 07/04/17 17:40 07/04/17 17:40 Course - Re-evaluation Re-evalutation: 07/04/17 21:42 Patient has mild white count elevation, she is afebrile, she otherwise looks well, have low suspicion for any life-threatening issues, given the location of her pain and I do not believe this is appendicitis, have no suspicion of any pelvic abnormality as it is too high in location, nonetheless review believe very close follow-up is appropriate for this patient, I do not believe imaging would be of any benefit at this time. I did write for Rod to help with the pain have instructed the patient to take Cipro if she begins to have fevers as this may be more of intestinal irritation. Given age I have lower suspicion for diverticulitis especially without a fever After performing a Medical Screening Examination, I estimate there is LOW risk for ACUTE APPENDICITIS, BOWEL OBSTRUCTION, ACUTE CHOLECYSTITIS, PERFORATED DIVERTICULITIS, INCARCERATED HERNIA, PANCREATITIS, PELVIC INFLAMMATORY DISEASE, PERFORATED ULCER, ECTOPIC , or TUBO-OVARIAN ABSCESS, thus I consider the discharge disposition reasonable. Also, there is no evidence or peritonitis , sepsis, or toxicity. I have reevaluated this patient multiple times and no significant life threatening changes are noted. The patient and I have discussed the diagnosis and risks, and we agree with discharging home with close follow-up with the understanding that symptoms and presentations can change. We also discussed returning to the Emergency Department immediately if new or worsening symptoms occur. We have discussed the symptoms which are most concerning (e.g., bloody stool, fever, changing or worsening pain, vomiting) that necessitate immediate return. - Vital Signs Vital signs: Temp Pulse Resp BP Pulse Ox 97.9 F 70 16 120/80 100 07/04/17 20:36 07/04/17 20:36 07/04/17 20:36 07/04/17 20:36 07/04/17 20:36 - Laboratory Result Diagrams: 07/04/17 19:15 07/04/17 19:15 Laboratory results interpreted by me: 07/04/17 07/04/17 19:15 19:15 WBC 12.2 H MCH 26.8 L Carbon Dioxide 32 H Discharge - Discharge Clinical Impression: Abdominal pain Qualifiers: Abdominal location: periumbilical Qualified Code(s): R10.33 - Periumbilical pain Condition: Stable Disposition: HOME, SELF-CARE Instructions: Abdominal Pain ([facility]), Antispasmodics ([facility]) Additional Instructions: Follow up with your physician tomorrow for further care or return to the ED IMMEDIATELY if symptoms worsen or new concerns occur. If you cannot afford to follow up with your primary care physician a list of low cost clinics have been provided at the end of your discharge papers as well. Prescriptions: Ciprofloxacin HCl [Cipro 500 mg Tablet] 500 mg PO BID #20 tablet Dicyclomine HCl [Bentyl 20 mg Tablet] 20 mg PO QID #40 tablet
[2017-07-04 20:37] VITALS: BP 120/80
== END 2017-07-04 20:36 | disposition home or self-care (01) ==
LOC: ER 17:26
DX: R10.33 Periumbilical pain (principal); Z87.891 Personal history of nicotine dependence
CPT/HCPCS: 36415; 80053; 81001; 81025; 83690; 85025; 99283

== ENCOUNTER 2017-11-19 20:57 | Emergency (ER) | payer MEDICAID | END 2017-11-19 22:11 | disposition left against medical advice (07) | LOC: ER 20:57 | DX: Z53.21 Procedure and treatment not carried out due to patient leaving prior to being seen by health care provider (principal) ==

== ENCOUNTER 2018-07-30 13:05 | Emergency (ER) | payer MEDICAID ==
[2018-07-30] MEDS ORDERED: ASPIRIN 81 MG TABLET, CHEWABLE PO ONE (13:57)
--- NOTE | 2018-07-30 14:03 | ER Document Report ---
ED Medical Screen (RME) - General Chief Complaint: Neck Problem Stated Complaint: NECK PAIN Time Seen by Provider: 07/30/18 13:48 Primary Care Provider: STORMY WOODY MD [Primary Care Provider] - Follow up as needed Mode of Arrival: Ambulatory Information source: Patient Notes: Patient presents complaining of right-sided neck, upper back and anterior chest pain. Patient states that she has a sensation like her shoulder is being pulled back. Patient states that she is worried that this is pain more to when she had an MT in the past. Patient is concerned about a heart attack at this time and would like further evaluation. I have greeted and performed a rapid initial assessment of this patient. A comprehensive ED assessment and evaluation of the patient, analysis of test results and completion of the medical decision making process will be conducted by additional ED providers. TRAVEL OUTSIDE OF THE [place] IN LAST 30 DAYS: No - Related Data Allergies/Adverse Reactions: codeine [Codeine] Allergy (Intermediate, Verified 07/30/18 13:13) swelling Adhesive Bandage * [Adhesive Bandage] Adverse Reaction (Verified 07/30/18 13:13) Generalized rash Past Medical History - Past Medical History Cardiac Medical History: Denies: Hx Coronary Artery Disease, Hx DVT, Hx Heart Attack, Hx Hypercholesterolemia, Hx Hypertension Pulmonary Medical History: Reports: Hx Bronchitis Denies: Hx Asthma, Hx COPD, Hx Pneumonia Neurological Medical History: Reports: Hx Migraine. Denies: Hx Cerebrovascular Accident, Hx Seizures Endocrine Medical History: Reports: Hx Diabetes Mellitus Type 2 - gestational Renal/ Medical History: Reports: Hx Kidney Stones, Hx Ovarian Cysts - PCOS. Denies: Hx Peritoneal Dialysis GI Medical History: Reports: Hx Irritable Bowel Musculoskeltal Medical History: Denies Hx Arthritis Psychiatric Medical History: Reports: Hx Depression Past Surgical History: Reports: Hx Cholecystectomy - Immunizations Immunizations up to date: Yes Hx Diphtheria, Pertussis, Tetanus Vaccination: Yes Physical Exam - Vital signs Vitals: Temp Pulse Resp BP Pulse Ox 98.1 F 105 H 16 111/75 97 07/30/18 13:11 07/30/18 13:11 07/30/18 13:11 07/30/18 13:11 07/30/18 13:11 - Cardiovascular Rhythm: Regular Heart sounds: S1 appreciated, S2 appreciated Murmur: No Course - Vital Signs Vital signs: Temp Pulse Resp BP Pulse Ox 98.1 F 105 H 16 111/75 97 07/30/18 13:11 07/30/18 13:11 07/30/18 13:11 07/30/18 13:11 07/30/18 13:11 Doctor's Discharge - Discharge Referrals: STORMY WOODY MD [Primary Care Provider] - Follow up as needed
--- NOTE | 2018-07-30 14:29 | RADIOLOGY REPORT (SQ) ---
EXAM DESCRIPTION: CHEST 2 VIEWS COMPLETED DATE/TIME: 07/30/2018 2:17 pm REASON FOR STUDY: cp COMPARISON: Two-view chest 12/04/2014 EXAM PARAMETERS: NUMBER OF VIEWS: two views TECHNIQUE: Digital Frontal and Lateral radiographic views of the chest acquired. RADIATION DOSE: NA LIMITATIONS: none FINDINGS: LUNGS AND PLEURA: No opacities, masses or pneumothorax. No pleural effusion. MEDIASTINUM AND HILAR STRUCTURES: No masses or contour abnormalities. HEART AND VASCULAR STRUCTURES: Heart normal size. No evidence for failure. BONES: No acute findings. HARDWARE: None in the chest. OTHER: No other significant finding. IMPRESSION: NO ACUTE RADIOGRAPHIC FINDING IN THE CHEST. TECHNICAL DOCUMENTATION: JOB ID: [id number] [employer]- All Rights Reserved Reading location - IP/workstation name: [email or web address]
[2018-07-30 14:55] LABS: ABSOLUTE BASOPHILS # (AUTO) 0.1 10^3/uL (0.0-0.2); ABSOLUTE EOSINOPHILS # (AUTO) 0.3 10^3/uL (0.0-0.6); ABSOLUTE LYMPHOCYTES (AUTO) 2.5 10^3/uL (0.5-4.7); ABSOLUTE MONOCYTES (AUTO) 0.8 10^3/uL (0.1-1.4); ABSOLUTE NEUT (AUTO) 5.5 10^3/uL (1.7-8.2); BASOPHILS % (AUTO) 0.8 % (0-2); EOSINOPHILS % (AUTO) 3.1 % (0-6); HEMATOCRIT 40.3 % (36.0-47.0); HEMOGLOBIN 13.7 g/dL (12.0-15.5); MEAN CORPUSCULAR HEMOGLOBIN 28.2 pg (27.0-33.4); MEAN CORPUSCULAR VOLUME 83 fl (80-97); MONOCYTES % (AUTO) 9.1 % (3-13); PLATELET COUNT 290 10^3/uL (150-450); RED BLOOD COUNT 4.86 10^6/uL (3.72-5.28); RED CELL DISTRIBUTION WIDTH 13.4 % (11.5-14.0); TOTAL CELLS COUNTED % (AUTO) 100 %; WHITE BLOOD COUNT 9.2 10^3/uL (4.0-10.5)
[2018-07-30 15:12] LABS: ALANINE AMINOTRANSFERASE 16 U/L (9-52); ALBUMIN 3.7 g/dL (3.5-5.0); ALKALINE PHOSPHATASE 71 U/L (38-126); ANION GAP 8 (5-19); ASPARTATE AMINO TRANSFERASE 15 U/L (14-36); BILIRUBIN,DIRECT 0.3 mg/dL (0.0-0.4); BILIRUBIN,TOTAL 0.4 mg/dL (0.2-1.3); BLOOD UREA NITROGEN 10 mg/dL (7-20); CALCIUM 9.1 mg/dL (8.4-10.2); CARBON DIOXIDE 26 mmol/L (22-30); CHLORIDE 105 mmol/L (98-107); CREATINE KINASE 46 U/L (30-135); GLUCOSE 85 mg/dL (75-110); SODIUM 138.9 mmol/L (137-145); TOTAL PROTEIN 6.9 g/dL (6.3-8.2)
[2018-07-30 15:23] LABS: CREATINE KINASE MB < 0.22 ng/mL (<4.55); TROPONIN I < 0.012 ng/mL
[2018-07-30] MEDS ORDERED: IBUPROFEN 800 MG TABLET PO ONE (15:42)
--- NOTE | 2018-07-30 15:47 | ER Document Report ---
ED General - General Chief Complaint: Neck Problem Stated Complaint: NECK PAIN Time Seen by Provider: 07/30/18 13:48 Primary Care Provider: STORMY WOODY MD [Primary Care Provider] - Follow up as needed Mode of Arrival: Ambulatory Information source: Patient TRAVEL OUTSIDE OF THE [place] IN LAST 30 DAYS: No - HPI Patient complains to provider of: Right upper chest, right shoulder, right upper back and scapular pain Onset: This morning Onset/Duration: Constant Severity: Severe Pain Level: 4 Associated symptoms: denies: Chills, Fever Exacerbated by: Denies Relieved by: Denies Similar symptoms previously: No Recently seen / treated by doctor: No Notes: 28-year-old female coming in today with chief complaint of right upper chest, right shoulder, and right scapular pain. She describes it as a heavy pain that started while she was driving to work this morning. Reports increased amounts of stress. Reports that she has a history of heart attack in the past. Back in October 2017, patient was having left-sided and substernal chest pressure like an elephant sitting on her chest. She was seen at the [facility]. She was admitted overnight. She was told that she had a small heart attack. However the next day she had a heart catheterization that was clean. Patient does not have high blood pressure, high cholesterol, diabetes, but she does have a family history of coronary artery disease tobacco use and obesity. - Related Data Allergies/Adverse Reactions: codeine [Codeine] Allergy (Intermediate, Verified 07/30/18 13:13) swelling Adhesive Bandage * [Adhesive Bandage] Adverse Reaction (Verified 07/30/18 13:13) Generalized rash Past Medical History - General Information source: Patient - Social History Smoking Status: Current Every Day Smoker Chew tobacco use (# tins/day): No Frequency of alcohol use: Occasional Drug Abuse: None Family History: Reviewed & Not Pertinent, CVA, DM, Hyperlipidemia, Hypertension, Malignancy, Thyroid Disfunction Patient has suicidal ideation: No Patient has homicidal ideation: No - Past Medical History Cardiac Medical History: Denies: Hx Coronary Artery Disease, Hx DVT, Hx Heart Attack, Hx Hypercholesterolemia, Hx Hypertension Pulmonary Medical History: Reports: Hx Bronchitis Denies: Hx Asthma, Hx COPD, Hx Pneumonia Neurological Medical History: Reports: Hx Migraine. Denies: Hx Cerebrovascular Accident, Hx Seizures Endocrine Medical History: Reports: Hx Diabetes Mellitus Type 2 - gestational Renal/ Medical History: Reports: Hx Kidney Stones, Hx Ovarian Cysts - PCOS. Denies: Hx Peritoneal Dialysis GI Medical History: Reports: Hx Irritable Bowel Musculoskeletal Medical History: Denies Hx Arthritis Psychiatric Medical History: Reports: Hx Depression Past Surgical History: Reports: Hx Cholecystectomy - Immunizations Immunizations up to date: Yes Hx Diphtheria, Pertussis, Tetanus Vaccination: Yes Review of Systems - Review of Systems Notes: Constitutional: No fevers. No chills. EENT: No eye redness. No eye pain. No ear pain. No sore throat. Cardiovascular: +chest pain. No palpitations. Respiratory: No cough. No shortness of breath. No respiratory distress. Gastrointestinal: No abdominal pain. No nausea, vomiting, or diarrhea. Genitourinary: Atraumatic. No lesions. No pain. No discharge. Musculoskeletal: Positive right chest wall pain, right shoulder pain, right scapular pain Skin: No rash or lesions. Lymphatic: No swollen lymph nodes. Neurologic: No headache. No syncope. Psychiatric: No suicidal or homicidal ideation. Physical Exam - Vital signs Vitals: Temp Pulse Resp BP Pulse Ox 98.1 F 105 H 16 111/75 97 07/30/18 13:11 07/30/18 13:11 07/30/18 13:11 07/30/18 13:11 07/30/18 13:11 - Notes Notes: General: Well-developed, well-nourished. In no acute distress. Non-toxic appearing. Cardiac: Well-perfused. Regular rate and rhythm. No murmurs, rubs, or gallops. Pulmonary: No respiratory distress. No cyanosis. Bilateral lung fiels are clear to auscultation. Abdominal: Non-distended. Non-rigid. Bowels sounds are present in all four quadrants. No guarding or rebound. HEENT: Head is atraumatic. Conjunctivae not reddened. No tearing. PERRL. EOMI. Orbits atraumatic. No periorbital swelling or erythema. Oropharynx is without erythema, swelling, or exudates. Neck: Supple. No adenopathy. No meningismus. Dermatologic: Warm with good turgor. No rash. Atraumatic. Chest: Atraumatic. No chest wall tenderness to palpation. Musculoskeletal: Right upper chest wall tenderness, right shoulder and trapezius tenderness and right scapular tenderness. Genitourinary: Examination deferred Neurologic: No gross neurologic deficits. Psychiatric: Normal mood. Course - Re-evaluation Re-evalutation: 07/30/18 15:50 Heart score is 2. Still low risk. Initial troponin is negative. Work-up is otherwise normal. Pain is reproducible to palpation. Patient reports increased amount of stress at this phase of her life. Will discharge home as musculoskeletal pain and close follow-up with her primary care doctor. - Vital Signs Vital signs: Temp Pulse Resp BP Pulse Ox 98.1 F 105 H 16 111/75 97 07/30/18 13:11 07/30/18 13:11 07/30/18 13:11 07/30/18 13:11 07/30/18 13:11 - Laboratory Result Diagrams: 07/30/18 14:20 07/30/18 14:20 Discharge - Discharge Clinical Impression: Atypical chest pain Condition: Good Disposition: HOME, SELF-CARE Instructions: Chest Wall Pain ([facility]) Additional Instructions: Your lab work in the emergency department does not indicate that you had a heart attack. We tend to think that your symptoms are probably related musculoskeletal causes and not heart causes. However, if you start having worsening pain, shortness of breath, dizziness, nausea and vomiting, or other concerning symptoms, you need to return immediately to the hospital to be reevaluated. Recommend ibuprofen or Aleve [id number] as well as nonmedicinal measures like ice packs, moist heat, massage to alleviate your symptoms. Please follow-up with your primary care provider in 1 to 2 days. Referrals: STORMY WOODY MD [Primary Care Provider] - Follow up as needed
[2018-07-30 16:09] VITALS: BP 110/72
--- NOTE | 2018-07-30 19:01 | EKG REPORT ---
SEVERITY:- ABNORMAL ECG - SINUS RHYTHM ABNORMAL T, CONSIDER ISCHEMIA, ANTERIOR LEADS : Confirmed by: Mandeep Jackson MD 30-Jul-2018 18:59:40
== END 2018-07-30 15:58 | disposition home or self-care (01) ==
LOC: ER 13:05
DX: R07.89 Other chest pain (principal); M89.8X1 Other specified disorders of bone, shoulder; F17.200 Nicotine dependence, unspecified, uncomplicated; Z82.49 Family history of ischemic heart disease and other diseases of the circulatory system; Z88.5 Allergy status to narcotic agent
CPT/HCPCS: 93005; 99284; 36415; 82553; 82550; 85025; 80053; 84484; 71046; 93010; J3490

== ENCOUNTER 2018-09-02 01:07 | Emergency (ER) | payer MEDICAID ==
[2018-09-02] MEDS ORDERED: CLINDAMYCIN HCL 150 MG CAPSULE PO ONE (03:00)
[2018-09-02] MEDS ORDERED: KETOROLAC TROMETHAMINE 60 MG/2 ML SDV IM ONE (03:01)
--- NOTE | 2018-09-02 03:01 | ER Document Report ---
ED General - General Chief Complaint: Toothache Stated Complaint: swollen mouth Time Seen by Provider: 09/02/18 02:59 Primary Care Provider: STORMY WOODY MD [Primary Care Provider] - Follow up as needed Notes: Patient is a 28-year-old female without chronic medical problems who presents with pain to her left most posterior mandibular molar. States the tooth cracked open several days ago and since that time she has had severe, throbbing, constant pain to the area. States that she is noted some mild swelling around the jaw and has also had pain in her left ear. Nothing seems to improve the pain and she has tried ibuprofen, Percocet and tramadol. Any attempted eating or drinking dramatically worsens the pain. Denies any difficulty breathing or swallowing. Denies any history of similar symptoms in the past. Scheduled to see her dentist within the next several days. TRAVEL OUTSIDE OF THE [place] IN LAST 30 DAYS: No - Related Data Allergies/Adverse Reactions: codeine [Codeine] Allergy (Intermediate, Verified 07/30/18 13:13) swelling Adhesive Bandage * [Adhesive Bandage] Adverse Reaction (Verified 07/30/18 13:13) Generalized rash Past Medical History - General Information source: Patient - Social History Smoking Status: Current Every Day Smoker Frequency of alcohol use: None Drug Abuse: None Lives with: Family Family History: Reviewed & Not Pertinent, CVA, DM, Hyperlipidemia, Hypertension, Malignancy, Thyroid Disfunction Patient has suicidal ideation: No Patient has homicidal ideation: No - Past Medical History Cardiac Medical History: Denies: Hx Coronary Artery Disease, Hx DVT, Hx Heart Attack, Hx Hypercholesterolemia, Hx Hypertension Pulmonary Medical History: Reports: Hx Bronchitis Denies: Hx Asthma, Hx COPD, Hx Pneumonia Neurological Medical History: Reports: Hx Migraine. Denies: Hx Cerebrovascular Accident, Hx Seizures Endocrine Medical History: Reports: Hx Diabetes Mellitus Type 2 - gestational Renal/ Medical History: Reports: Hx Kidney Stones, Hx Ovarian Cysts - PCOS. Denies: Hx Peritoneal Dialysis GI Medical History: Reports: Hx Irritable Bowel Musculoskeletal Medical History: Denies Hx Arthritis Psychiatric Medical History: Reports: Hx Depression Past Surgical History: Reports: Hx Cholecystectomy - Immunizations Immunizations up to date: Yes Hx Diphtheria, Pertussis, Tetanus Vaccination: Yes Review of Systems - Review of Systems Notes: Constitutional: Negative for fever. HENT: Positive for dental pain Eyes: Negative for visual changes. Cardiovascular: Negative for chest pain. Respiratory: Negative for shortness of breath. Gastrointestinal: Negative for abdominal pain, vomiting or diarrhea. Genitourinary: Negative for dysuria. Musculoskeletal: Negative for back pain. Skin: Negative for rash. Neurological: Negative for headaches, weakness or numbness. 10 point ROS negative except as marked above and in HPI. Physical Exam - Vital signs Vitals: Temp Pulse Resp BP Pulse Ox 98.4 F 89 20 118/93 H 100 09/02/18 01:13 09/02/18 01:13 09/02/18 01:13 09/02/18 01:13 09/02/18 01:13 Interpretation: Normal Notes: PHYSICAL EXAMINATION: GENERAL: Well-appearing, well-nourished and in no acute distress. HEAD: Atraumatic, normocephalic. EYES: sclera anicteric, conjunctiva are normal. ENT: nares patent, oropharynx clear without exudates. Moist mucous membranes. Poor dentition throughout, the most posterior left mandibular molar is cracked open with exposure of the nerve roots. No swelling at the gumline. Mild swelling of the level of the mandible. Left TM with redness and bulging although no effusion. Right TM clear. NECK: Normal range of motion, supple without lymphadenopathy, no stridor LUNGS: Breath sounds clear to auscultation bilaterally and equal. No wheezes rales or rhonchi. HEART: Regular rate and rhythm without murmurs EXTREMITIES: Normal range of motion, no pitting or edema. No cyanosis. NEUROLOGICAL: No focal neurological deficits. Moves all extremities spontaneously PSYCH: Normal mood, normal affect. SKIN: Warm, Dry, normal turgor, no rashes or lesions noted. Course - Re-evaluation Re-evalutation: 09/02/18 03:00 Presentation is most consistent with likely an infected tooth. Airway is patent. Vitals within normal limits. Patient is able swallow without any difficulty. There is no significant facial swelling. No evidence of Greg angina, apical abscess, or airway obstruction. Patient will be started on antibiotics. I've instructed to follow-up with dentistry as earliest ability for definitive management. At this time will discharge with return precautions and follow-up recommendations. Verbal discharge instructions given a the bedside and opportunity for questions given. Medication warnings reviewed. Patient is in agreement with this plan and has verbalized understanding of return precautions and the need for primary care follow-up in the next 24-72 hours. - Vital Signs Vital signs: Temp Pulse Resp BP Pulse Ox 98.4 F 89 20 118/93 H 100 09/02/18 01:13 09/02/18 01:13 09/02/18 01:13 09/02/18 01:13 09/02/18 01:13 Discharge - Discharge Clinical Impression: Dental infection, Mouth pain Condition: Good Disposition: HOME, SELF-CARE Additional Instructions: You have been seen for dental pain. It is very important that you follow-up with a dentist for definitive care. Please return if you develop fever greater than 101, worsening swelling in your face, vomiting, difficulty breathing or swallowing, or any other symptoms that are concerning to you. For pain you josefa uld take ibuprofen 600 mg every 6 hours as needed. Take antibiotics as prescribed. Prescriptions: Clindamycin HCl 300 mg PO TID #30 capsule Referrals: STORMY WOODY MD [Primary Care Provider] - Follow up as needed
[2018-09-02] MEDS ORDERED: CLINDAMYCIN HCL 150 MG CAPSULE ONE (03:41)
[2018-09-02 04:06] VITALS: BP 101/65
== END 2018-09-02 04:03 | disposition home or self-care (01) ==
LOC: ER 01:07
DX: K04.7 Periapical abscess without sinus (principal); K03.81 Cracked tooth; K08.89 Other specified disorders of teeth and supporting structures; F17.200 Nicotine dependence, unspecified, uncomplicated; Z88.5 Allergy status to narcotic agent
CPT/HCPCS: 99282; 96372; J3490; J1885